=== PATIENT | female | born 1955 | race Caucasian/White ===

== ENCOUNTER 2017-05-16 02:40 | Emergency (ER) | payer BC ==
[2017-05-16] MEDS ORDERED: Adacel (T-DAP) 0.5 ML VIAL ONE (03:06)
[2017-05-16] MEDS ORDERED: Fluorescein Opthalmic Strip ONE (03:13)
[2017-05-16] MEDS ORDERED: Proparacaine 0.5% Opth 15 ML BOT ONE (03:13)
[2017-05-16] MEDS ORDERED: HYDROcodone/Acetaminophen 10/325 mg Tablet ONE (03:13)
== END 2017-05-16 04:46 | disposition short-term general hospital (02) ==
LOC: ERS 02:40
DX: S01.112A Laceration without foreign body of left eyelid and periocular area, initial encounter (principal); H54.62 Unqualified visual loss, left eye, normal vision right eye; K21.9 Gastro-esophageal reflux disease without esophagitis; I10 Essential (primary) hypertension; F41.9 Anxiety disorder, unspecified; Z79.899 Other long term (current) drug therapy; W39.XXXA Discharge of firework, initial encounter; Y93.E9 Activity, other interior property and clothing maintenance
CPT/HCPCS: 12011; 90471; 90715